=== PATIENT | female | born 1985 | race Two or more races ===

== ENCOUNTER 2019-06-05 06:57 | Day surgery (SDC) | payer BC, OTHER ==
[~2019-06-05] VITALS: Ht 157.5 cm; Wt 93.2 kg
[~2019-06-05 06:57] MED LIST: HYDR-3240 PO; IBUP-1222 PO; PREN1TAB60 PO; birth control
[2019-06-05 07:27] VITALS: BP 143/89
[2019-06-05] MEDS ORDERED: LACTATED RINGERS 1,000 ML IV SCH (07:30)
[2019-06-05] MEDS ORDERED: SERT100T32 PO (07:53)
[2019-06-05] MEDS ORDERED: TAMS-11 PO (07:53)
[2019-06-05] MEDS ORDERED: KETO10TA PO (07:53)
[2019-06-05 08:27] LABS: MICROSCOPIC INDICATED
[2019-06-05 08:34] LABS: HCG UR SG 1.025 (1.003-1.030)
[2019-06-05] MEDS ORDERED: FENTANYL PF 250 MCG/5ML ONE (08:38)
[2019-06-05] MEDS ORDERED: MIDAZOLAM 1 MG/ML, 2ML ONE (08:38)
[2019-06-05 08:44] LABS: CULTURE INDICATED? YES
[2019-06-05] MEDS ORDERED: ACETAMINOPHEN 325 MG TABLET PO PRN (09:00)
[2019-06-05] MEDS ORDERED: PROMETHAZINE 25 MG/ML, 1ML IV PRN (09:00)
[2019-06-05] MEDS ORDERED: PROMETHAZINE 25 MG SUPP PR PRN (09:00)
[2019-06-05] MEDS ORDERED: HYDROmorphone 2 MG/ML, 1ML IVPush PRN (09:00)
[2019-06-05] MEDS ORDERED: LORazepam 2 MG/ML, 1ML IVPush PRN (09:00)
[2019-06-05] MEDS ORDERED: ONDANSETRON ODT 8 MG PO PRN (09:00)
[2019-06-05] MEDS ORDERED: ONDANSETRON 2MG/ML, 2ML IV PRN (09:00)
[2019-06-05] MEDS ORDERED: MEPERIDINE/PF 25MG/ML,1ML IVPush PRN (09:00)
[2019-06-05] MEDS ORDERED: HYDROcodone/APAP 7.5-325MG/15ML UDC PO PRN (09:00)
[2019-06-05] MEDS ORDERED: EPHEDRINE 50 MG/ML, 1ML ONE (09:11)
[2019-06-05] MEDS ORDERED: LIDOCAINE-MPF 2% ,5ML ONE (09:11)
[2019-06-05] MEDS ORDERED: FENTANYL PF 100 MCG/2ML ONE ×2 (10:06→10:36)
[2019-06-05] MEDS ORDERED: KETOROLAC 30 MG/1 ML ONE (10:07)
[2019-06-05] MEDS ORDERED: ONDANSETRON 2MG/ML, 2ML ONE (10:08)
[2019-06-05] MEDS ORDERED: PROPOFOL 10 MG/ML, 20ML ONE (10:08)
[2019-06-05] MEDS ORDERED: DEXAMETHASONE 4 MG/ML, 1ML ONE (10:08)
[2019-06-05] MEDS ORDERED: CEFAZOLIN 1,000 MG ONE (10:08)
[2019-06-05] MEDS: FENTANYL PF 100 MCG/2ML IV PRN ×2 (10:37→11:07)
[2019-06-05] MEDS ORDERED: ONDANSETRON 2MG/ML, 2ML IVPush ONE (15:30)
== END 2019-06-05 16:40 | disposition home or self-care (01) ==
LOC: OUT 06:57
PROVIDERS: ATTEND Urology
DX: N20.0 Calculus of kidney (principal); F15.90 Other stimulant use, unspecified, uncomplicated; Z72.89 Other problems related to lifestyle; Z87.440 Personal history of urinary (tract) infections; Z88.8 Allergy status to other drugs, medicaments and biological substances
CPT/HCPCS: 52356; 74018; 81001; 81025; 87077; 87086; 87106; 87186; C1758; C1769; C2617; J0690; J1100; J1885; J2250; J2405; J2704; J3010; J7120; Q0162; 76000